=== PATIENT | male | born 1970 | race Caucasian/White ===

== ENCOUNTER → 2018-01-04 07:07 | Outpatient (CLI) | payer OTHER, SELFPAY ==
[2018-01-04 10:37] LABS: AST(SGOT) 31 U/L (15-37); Alanine Aminotransfer ALT/SGPT 36 U/L (16-61); Albumin, Serum 3.6 g/dL (3.2-5.0); Alkaline Phosphatase 49 U/L (45-117); Bilirubin, Direct 0.14 mg/dL (0.00-0.30); Cholesterol 206 mg/dL (200); Globulin 3.9 g/dL (2.2-4.2); High Density Lipoprotein 59 mg/dL; Protein, Total 7.5 g/dL (6.4-8.2); Triglycerides 239 mg/dL; Very Low Density Lipoprotein 48 mg/dL (5-40)
== END ==
PROVIDERS: Family Provider Family Medicine; PCP Family Medicine; Referring Provider Family Medicine; Visit Provider Family Medicine
DX: E78.5 Hyperlipidemia, unspecified (principal)
CPT/HCPCS: 36415; 80061; 80076

== ENCOUNTER → 2018-07-27 16:35 | Outpatient (CLI) | payer OTHER, SELFPAY ==
[2017-02-03 10:11] VITALS: BMI 27.4
[2018-07-27 18:04] LABS: Uric Acid 7.5 mg/dL (3.5-7.2)
== END ==
PROVIDERS: Family Provider Family Medicine; PCP Family Medicine; Visit Provider Family Medicine
DX: M10.9 Gout, unspecified (principal)
CPT/HCPCS: 36415; 84550

== ENCOUNTER → 2018-10-26 07:08 | Outpatient (CLI) | payer OTHER, SELFPAY ==
[2018-10-26 10:02] LABS: Absolute Lymphocyte Count 1.83 X10^3/uL (0.83-4.51); Absolute Neutrophil Count 3.5 X10^3/uL (2.0-7.7); Basophil# 0.03 X10^3/uL; Basophil% 0.5 % (0-1); Eosinophil# 0.11 X10^3/uL; Eosinophils% 1.9 % (0-5); Hematocrit 40.8 % (40-54); Hemoglobin 13.5 g/dL (13.0-16.5); Lymphocyte # 1.83 X10^3/ul (4.0); Lymphocyte % 31.3 % (19-41); Mean Corp Hgb Conc 33.1 g/dL (32-36); Mean Corpuscular Volume 93.8 fL (80-94); Mean Platelet Vol. 9.8 fl (6.2-12.0); Monocyte# 0.39 X10^3/uL; Monocyte% 6.7 % (0-10); NRBC Flagged by Analyzer 0 % (0-5); Neutrophil # 3.46 X10^3/uL (2.7-7.7); Neutrophil % 59.3 % (47-70); Platelet Count 236 K/mm3 (150-450); RBC Distribution Width CV 12.3 % (11.6-14.6); RBC Distribution Width SD 42.6 fl (35.1-43.9); Red Blood Count 4.35 M/mm3 (4.6-6.2); White Blood Count 5.8 K/mm3 (4.4-11.0)
[2018-10-26 10:31] LABS: Anion Gap 7 (5-15); BUN 9 mg/dL (7-18); BUN/Creat Ratio 9.6 RATIO (10-20); Calcium,Total 8.7 mg/dL (8.5-10.1); Chloride 107 mmol/L (98-107); Cholesterol 178 mg/dL (200); Creatinine, Serum 0.94 mg/dL (0.70-1.30); EST Glomerular Filtration Rate 91 mL/min (>60); Est Glom Filt Rate - Afr Amer 110 mL/min (>60); Glucose 80 mg/dL (74-106); High Density Lipoprotein 58 mg/dL; Potassium 4.4 mmol/L (3.5-5.1); Sodium Level 143 mmol/L (136-145); Triglycerides 347 mg/dL; Uric Acid 6.7 mg/dL (3.5-7.2); Very Low Density Lipoprotein 69 mg/dL (5-40)
== END ==
PROVIDERS: Family Provider Family Medicine; PCP Family Medicine; Referring Provider Family Medicine; Visit Provider Family Medicine
DX: E78.5 Hyperlipidemia, unspecified (principal); M10.9 Gout, unspecified; R03.0 Elevated blood-pressure reading, without diagnosis of hypertension
CPT/HCPCS: 36415; 80048; 80061; 84550; 85025

== ENCOUNTER → 2020-01-01 07:02 | Outpatient (CLI) | payer OTHER, SELFPAY ==
[2020-01-01 10:59] LABS: Hemoglobin A1c 5.3 % (3.8-5.6)
[2020-01-01 11:34] LABS: ALB/GLOB Ratio 0.9 RATIO (0.9-2.4); AST(SGOT) 33 U/L (15-37); Alanine Aminotransfer ALT/SGPT 41 U/L (16-61); Albumin, Serum 3.6 g/dL (3.2-5.0); Alkaline Phosphatase 47 U/L (45-117); Anion Gap 10 (5-15); BUN 14 mg/dL (7-18); BUN/Creat Ratio 11.5 RATIO (10-20); Chloride 108 mmol/L (98-107); Cholesterol 191 mg/dL (200); Creatinine, Serum 1.22 mg/dL (0.70-1.30); EST Glomerular Filtration Rate 67 mL/min (>60); Est Glom Filt Rate - Afr Amer 82 mL/min (>60); Globulin 3.9 g/dL (2.2-4.2); Glucose 115 mg/dL (74-106); High Density Lipoprotein 54 mg/dL; Potassium 4.3 mmol/L (3.5-5.1); Protein, Total 7.5 g/dL (6.4-8.2); Sodium Level 140 mmol/L (136-145); Triglycerides 351 mg/dL; Very Low Density Lipoprotein 70 mg/dL (5-40)
== END ==
PROVIDERS: PCP Family Medicine; Referring Provider Family Medicine; Visit Provider Family Medicine
DX: E78.5 Hyperlipidemia, unspecified (principal); R03.0 Elevated blood-pressure reading, without diagnosis of hypertension; E16.2 Hypoglycemia, unspecified
CPT/HCPCS: 36415; 80053; 80061; 83036

== ENCOUNTER → 2020-04-08 08:10 | Outpatient (CLI) | payer OTHER, SELFPAY ==
[2017-02-03 10:11] VITALS: BMI 27.4
--- NOTE | 2020-04-08 08:57 | RAD_ITS ---
STUDY: X-RAY - PARANASAL SINUSES REASON FOR EXAM: Male, 49 years old. Sinus pain TECHNIQUE: 3 view(s) of the paranasal sinuses were obtained. COMPARISON: None. FINDINGS: Normal visualized frontal, maxillary, ethmoidal and sphenoid sinuses. Normal visualized facial bones. The soft tissue structures are unremarkable. RAD/Sinuses min 3 Views IMPRESSION: Normal x-rays of the paranasal sinuses. Electronically Signed: Puneet Davis MD at 10:16 EST , Service support ,
== END ==
PROVIDERS: PCP Family Medicine; Referring Provider Family Medicine; Visit Provider Family Medicine
DX: J34.89 Other specified disorders of nose and nasal sinuses (principal)
CPT/HCPCS: 70220

== ENCOUNTER → 2021-01-08 08:01 | Outpatient (CLI) | payer OTHER, SELFPAY ==
[2021-01-08 10:24] LABS: ALB/GLOB Ratio 0.8 RATIO (0.9-2.4); AST(SGOT) 31 U/L (15-37); Alanine Aminotransfer ALT/SGPT 35 U/L (16-61); Albumin, Serum 3.4 g/dL (3.2-5.0); Alkaline Phosphatase 58 U/L (45-117); Anion Gap 6 (5-15); BUN 9 mg/dL (7-18); BUN/Creat Ratio 8.5 RATIO (10-20); Calcium,Total 8.9 mg/dL (8.5-10.1); Chloride 105 mmol/L (98-107); Cholesterol 207 mg/dL (200); Creatinine, Serum 1.06 mg/dL (0.70-1.30); EST Glomerular Filtration Rate 79 mL/min (>60); Est Glom Filt Rate - Afr Amer 96 mL/min (>60); Globulin 4.2 g/dL (2.2-4.2); Glucose 93 mg/dL (74-106); High Density Lipoprotein 50 mg/dL; Potassium 4.3 mmol/L (3.5-5.1); Protein, Total 7.6 g/dL (6.4-8.2); Sodium Level 138 mmol/L (136-145); Triglycerides 389 mg/dL; Uric Acid 8.2 mg/dL (3.5-7.2); Very Low Density Lipoprotein 78 mg/dL (5-40)
== END ==
PROVIDERS: PCP Family Medicine; Referring Provider Family Medicine; Visit Provider Family Medicine
DX: E78.5 Hyperlipidemia, unspecified (principal); M10.9 Gout, unspecified
CPT/HCPCS: 36415; 80053; 80061; 84550

== ENCOUNTER → 2022-01-19 | Outpatient (CLI) | payer OTHER, SELFPAY ==
[2022-01-19 10:14] LABS: ALB/GLOB Ratio 0.9 RATIO (0.9-2.4); AST(SGOT) 20 U/L (15-37); Alanine Aminotransfer ALT/SGPT 34 U/L (16-61); Albumin, Serum 3.5 g/dL (3.2-5.0); Alkaline Phosphatase 68 U/L (45-117); Anion Gap 7 (5-15); BUN 11 mg/dL (7-18); BUN/Creat Ratio 11.3 RATIO (10-20); Calcium,Total 9.4 mg/dL (8.5-10.1); Chloride 108 mmol/L (98-107); Cholesterol 257 mg/dL (200); Creatinine, Serum 0.97 mg/dL (0.70-1.30); EST Glomerular Filtration Rate 87 mL/min (>60); Est Glom Filt Rate - Afr Amer 105 mL/min (>60); Globulin 4.1 g/dL (2.2-4.2); Glucose 113 mg/dL (74-106); High Density Lipoprotein 53 mg/dL; Potassium 4.4 mmol/L (3.5-5.1); Protein, Total 7.6 g/dL (6.4-8.2); Sodium Level 141 mmol/L (136-145); Triglycerides 177 mg/dL; Uric Acid 6.9 mg/dL (3.5-7.2); Very Low Density Lipoprotein 35 mg/dL (5-40)
[2022-01-19 10:22] LABS: Microalbumin,Random Urine 29.1 mg/L (NO RANGE EST.); Microalbumin:Creatinine Ratio 19.1 mg/g CRE (<30 mg/g CRE)
== END | disposition home or self-care (01) ==
PROVIDERS: PCP Family Medicine; Referring Provider Family Medicine; Visit Provider Family Medicine
DX: E78.5 Hyperlipidemia, unspecified (principal); M10.9 Gout, unspecified; R03.0 Elevated blood-pressure reading, without diagnosis of hypertension
CPT/HCPCS: 36415; 80053; 80061; 82043; 82570; 84550

== ENCOUNTER → 2023-01-01 | Outpatient (CLI) | payer OTHER, SELFPAY ==
[2023-01-01 10:10] LABS: Absolute Lymphocyte Count 1.68 X10^3/uL (0.83-4.51); Absolute Neutrophil Count 4.9 X10^3/uL (2.0-7.7); Basophil# 0.03 X10^3/uL; Basophil% 0.4 % (0-1); Eosinophil# 0.16 X10^3/uL; Eosinophils% 2.2 % (0-5); Hematocrit 43.9 % (40-54); Hemoglobin 14.7 g/dL (13.0-16.5); Lymphocyte # 1.68 X10^3/ul (0.83-4.51); Lymphocyte % 23.2 % (19-41); Mean Corp Hgb Conc 33.5 g/dL (32-36); Mean Corpuscular Hgb 32.1 pg (27.0-32.0); Mean Corpuscular Volume 95.9 fL (80-94); Mean Platelet Vol. 10.1 fl (6.2-12.0); Monocyte# 0.47 X10^3/uL; Monocyte% 6.5 % (0-10); NRBC Flagged by Analyzer 0 % (0-5); Neutrophil # 4.86 X10^3/uL (2.7-7.7); Neutrophil % 67.1 % (47-70); Platelet Count 239 K/mm3 (150-450); RBC Distribution Width CV 12.6 % (11.6-14.6); RBC Distribution Width SD 44.6 fl (35.1-43.9); Red Blood Count 4.58 M/mm3 (4.6-6.2); White Blood Count 7.2 K/mm3 (4.4-11.0)
[2023-01-01 10:42] LABS: ALB/GLOB Ratio 0.9 RATIO (0.9-2.4); AST(SGOT) 51 U/L (15-37); Alanine Aminotransfer ALT/SGPT 57 U/L (16-61); Albumin, Serum 3.5 g/dL (3.2-5.0); Alkaline Phosphatase 53 U/L (45-117); Anion Gap 7 (5-15); BUN 10 mg/dL (7-18); BUN/Creat Ratio 9.8 RATIO (10-20); Calcium,Total 9.1 mg/dL (8.5-10.1); Chloride 107 mmol/L (98-107); Cholesterol 276 mg/dL (200); Creatinine, Serum 1.02 mg/dL (0.70-1.30); EST Glomerular Filtration Rate 82 mL/min (>60); Est Glom Filt Rate - Afr Amer 99 mL/min (>60); Globulin 3.8 g/dL (2.2-4.2); Glucose 108 mg/dL (74-106); High Density Lipoprotein 50 mg/dL; Potassium 4.2 mmol/L (3.5-5.1); Protein, Total 7.3 g/dL (6.4-8.2); Sodium Level 141 mmol/L (136-145); Triglycerides 307 mg/dL; Very Low Density Lipoprotein 61 mg/dL (5-40)
== END | disposition home or self-care (01) ==
LOC: MTLAB 07:03
PROVIDERS: PCP Family Medicine; Referring Provider Family Medicine; Visit Provider Family Medicine
DX: E78.5 Hyperlipidemia, unspecified (principal); R03.0 Elevated blood-pressure reading, without diagnosis of hypertension
CPT/HCPCS: 36415; 80053; 80061; 85025

== ENCOUNTER 2023-07-03 19:10 | Emergency (ER) | payer OTHER, SELFPAY ==
[2023-07-03 19:12] VITALS: BP 145/81; PULSE 84; RESP 16; TEMP 36.3; O2SAT 97; BMI 26.7
--- NOTE | 2023-07-03 19:18 | EKG12_ITS ---
Test Reason : SYNCOPE Blood Pressure : / mmHG Vent. Rate : 075 BPM Atrial Rate : 075 BPM P-R Int : 176 ms QRS Dur : 098 ms QT Int : 390 ms P-R-T Axes : 046 -04 040 degrees QTc Int : 435 ms Normal sinus rhythm Incomplete right bundle branch block Borderline ECG Confirmed by ALIYAH JOYCE, BI ([id number]), assignment editor GLEN BLUNT ([id number]) on 07/05/2023 9:44:11 AM Referred By: Confirmed By:BI LY MD
--- NOTE | 2023-07-03 19:19 | EX.ED.DYSGE1 ---
HPI History of Present Illness Chief Complaint: Syncope [facility] Medical History (Updated 07/03/23 @ 19:26 by Rukhsana Yuen) Gout Hypertension Home Medications aspirin 81 mg tablet,delayed release 81 mg PO DAILY@0800 #30 tabs 02/03/17 [Rx Last Taken Unknown] ezetimibe 10 mg-simvastatin 40 mg tablet 1 tab PO QPM #30 tabs 02/03/17 [Rx Last Taken Unknown] fenofibrate nanocrystallized 48 mg tablet 48 mg PO DAILY@0800 #30 tabs 02/03/17 [Rx Last Taken Unknown] omega-3s 980 mg-dha 253 mg-epa 647 mg-fish oil capsule,delayed release 1 ea PO DAILY ##30 02/03/17 [Rx Last Taken Unknown] Allergy/AdvReac Type Severity Reaction Status Date / Time No Known Allergies Allergy Verified 07/03/23 19:18 Social History (Updated 04/14/20 @ 14:33 by Agueda SILVA, PA) Smoking Status: Former smoker EXAM Physical Exam Const Vital Signs: 07/03/23 19:12 07/03/23 19:26 Temperature 97.4 F L Temperature Source Temporal Pulse Rate 84 Respiratory Rate 16 Respiratory Effort Normal Respiratory Pattern Normal Blood Pressure 145/81 H Blood Pressure Mean 102 Pulse Ox 97 Oxygen Delivery Method Room Air MDM MDM MDM Narrative Medical decision making narrative: I have personally performed a face to face assessment of the patient and have reviewed the NELL Note. I performed a substantive portion of the visit including all aspects of the following. My moura findings include: History is difficult plan inversion mechanism injury to the right ankle. He presents because of persistent pain and increased swelling. He states he is injured that ankle approximate 30 times. He has no known history of fracture. He also had a splinter right ring finger. Apparently was a metal shaving. Uncertain whether he may have gotten all of it out. Was placed on antibiotics and the infection has improved. Exam is the finger does not appear infected. There is no subungual hematoma. Sensation is normal. Full active range of motion. Examination of the right ankle reveals swelling. There is pain to palpation distal posterior 4 cm of the lateral malleolus. There is no pain ovation over the medial malleolus. There is no laxity with drawer testing. DP pulses palpable. There is no pain to palpation of the base of the fifth metatarsal. Medical Decision Making x-ray finger was obtained and there is no evidence of foreign body or soft tissue swelling. 3 views were obtained and admitted dependently interpreted by me at 1936. Three-view x-ray of the ankle and three-view x-ray of the foot was obtained. There is evidence of prior avulsion fracture medial malleolus x 2. There is no acute fracture. There is no widening of the mortise. The tarsal bones, metatarsal bones are normal on the x-ray. Other additions or changes: [None] Radiography Chest X-Ray - ED: Read by ED Physician (Documented under the MDM narrative/attending note) Discharge Plan Triage Chief Complaint: Syncope ED Midlevel Provider: Pepe Mercado ED Provider: Delio Kiran Dx/Rx/DC Orders Prescriptions: No Action fenofibrate nanocrystallized 48 MG tablet 48 mg PO DAILY@0800 Qty: 30 0RF ezetimibe-simvastatin 1 TABLET tablet 1 tab PO QPM Qty: 30 0RF uokaq-2j-avx-epa-fish oil 1 EACH capsule,delayed release(DR/EC) 1 ea PO DAILY Qty: 30 0RF aspirin 81 MG tablet 81 mg PO DAILY@0800 Qty: 30 0RF Primary Care Provider: Lynn Brink Referrals: Lynn Brink, DO [Primary Care Provider] -
[2023-07-03] MEDS: 0.9% Normal Saline (1000mL) 1,000 ML 1000 ML IV (19:28)
--- NOTE | 2023-07-03 19:30 | RAD_ITS ---
EXAM: XR RIGHT FOOT COMPLETE, 3 OR MORE VIEWS CLINICAL INDICATION: pain TECHNIQUE: Frontal, lateral and oblique views of the right foot. COMPARISON: Ankle on the same date. FINDINGS: BONES/JOINTS: Spurring of the medial lateral malleoli. Calcaneal spurs. Minimal dorsal midfoot spurring. No acute fracture. No subluxation. Normal alignment. Preservation of the joint space. No sclerotic or destructive changes observed. SOFT TISSUES: No significant abnormality. No soft tissue swelling or gas. No radiopaque foreign body. RAD/Foot min 3 Views IMPRESSION: Degenerative changes. No discrete evidence of an acute fracture or dislocation. Electronically Signed: Blane Tijerina DO at 19:48 EDT ,
--- NOTE | 2023-07-03 19:30 | RAD_ITS ---
EXAM: XR RIGHT ANKLE COMPLETE, 3 OR MORE VIEWS CLINICAL INDICATION: pain TECHNIQUE: Frontal, lateral and oblique views of the right ankle. COMPARISON: Foot on the same date. FINDINGS: BONES/JOINTS: Minimal spurring of the medial lateral malleoli small well-corticated ossicles at the medial malleolus. Calcaneal spurs. No acute fracture. No subluxation. Normal alignment. Preservation of the joint space. No sclerotic or destructive changes observed. SOFT TISSUES: Soft tissue swelling. No radiopaque foreign body. RAD/Ankle min 3 Views IMPRESSION: Soft tissue swelling. Degenerative changes. No acute osseous abnormalities. Electronically Signed: Blane Tijerina DO at 19:49 EDT ,
--- NOTE | 2023-07-03 19:30 | RAD_ITS ---
EXAM: XR RIGHT FINGERS, 2 OR MORE VIEWS CLINICAL INDICATION: splinter TECHNIQUE: Frontal, lateral and oblique views of the fingers of the right hand. COMPARISON: No relevant prior studies available. FINDINGS: BONES/JOINTS: No significant abnormality. No acute fracture. No subluxation. Normal alignment. Preservation of the joint space. No sclerotic or destructive changes observed. SOFT TISSUES: Soft tissue swelling of the fourth digit. No foreign body is identified. RAD/Finger(s) Min 2 Views IMPRESSION: Soft tissue swelling of the fourth digit. No foreign body is identified. Electronically Signed: Blane Tijerina DO at 19:50 EDT ,
--- NOTE | 2023-07-03 19:38 | EDS_ITS ---
HPI History of Present Illness Chief Complaint: Syncope Narrative Narrative: Patient [facility] Medical History (Updated 07/03/23 @ 19:26 by Rukhsana Yuen) Gout Hypertension Home Medications aspirin 81 mg tablet,delayed release 81 mg PO DAILY@0800 #30 tabs 02/03/17 [Rx Last Taken Unknown] ezetimibe 10 mg-simvastatin 40 mg tablet 1 tab PO QPM #30 tabs 02/03/17 [Rx Last Taken Unknown] fenofibrate nanocrystallized 48 mg tablet 48 mg PO DAILY@0800 #30 tabs 02/03/17 [Rx Last Taken Unknown] omega-3s 980 mg-dha 253 mg-epa 647 mg-fish oil capsule,delayed release 1 ea PO DAILY ##30 02/03/17 [Rx Last Taken Unknown] Allergy/AdvReac Type Severity Reaction Status Date / Time No Known Allergies Allergy Verified 07/03/23 19:18 Social History (Updated 04/14/20 @ 14:33 by Agueda Hutchins PA, PA) Smoking Status: Former smoker EXAM Physical Exam Const Vital Signs: 07/03/23 19:12 07/03/23 19:26 Temperature 97.4 F L Temperature Source Temporal Pulse Rate 84 Respiratory Rate 16 Respiratory Effort Normal Respiratory Pattern Normal Blood Pressure 145/81 H Blood Pressure Mean 102 Pulse Ox 97 Oxygen Delivery Method Room Air Discharge Plan Triage Chief Complaint: Syncope ED Midlevel Provider: Pepe Mercado ED Provider: Delio Kiran Dx/Rx/DC Orders Prescriptions: No Action fenofibrate nanocrystallized 48 MG tablet 48 mg PO DAILY@0800 Qty: 30 0RF ezetimibe-simvastatin 1 TABLET tablet 1 tab PO QPM Qty: 30 0RF rrnlu-6j-osu-epa-fish oil 1 EACH capsule,delayed release(DR/EC) 1 ea PO DAILY Qty: 30 0RF aspirin 81 MG tablet 81 mg PO DAILY@0800 Qty: 30 0RF Primary Care Provider: Lynn Brink Referrals: Lynn Brink, DO [Primary Care Provider] -
--- NOTE | 2023-07-03 19:40 | EDS_ITS ---
HPI <ALAN Hancock - Last Filed: 07/03/23 19:56> History of Present Illness Chief Complaint: Syncope Narrative Narrative: Patient is a 52-year-old male, patient has medical history of hyperlipidemia, patient does drink alcohol daily, he states a lot. Patient states this week, he injured his finger at work, concern for a metal foreign body, he did have some redness and was placed on amoxicillin. This has improved. Patient also states that he rolled his right ankle is having significant pain in the last 2 days. Today he was unable to go to work, and he has been sitting in a chair drinking beer. Today he did not eat or drink anything other than having beer. He states he was getting up to help with dinner when he felt dizzy, went to the bathroom and had a syncopal episode. Per the squad, patient was in a bradycardic rhythm, however he was alert and oriented, vital signs have returned to normal. Patient remembers the event slightly. He denies any chest pain or shortness of breath. Patient does complain of pain to his right ankle. PFSH <ALAN Hancock - Last Filed: 07/03/23 19:56> [facility] Medical History (Updated 07/03/23 @ 19:26 by Rukhsana Yuen) Gout Hypertension Home Medications aspirin 81 mg tablet,delayed release 81 mg PO DAILY@0800 #30 tabs 02/03/17 [Rx Last Taken Unknown] ezetimibe 10 mg-simvastatin 40 mg tablet 1 tab PO QPM #30 tabs 02/03/17 [Rx Last Taken Unknown] fenofibrate nanocrystallized 48 mg tablet 48 mg PO DAILY@0800 #30 tabs 02/03/17 [Rx Last Taken Unknown] omega-3s 980 mg-dha 253 mg-epa 647 mg-fish oil capsule,delayed release 1 ea PO DAILY ##30 02/03/17 [Rx Last Taken Unknown] Allergy/AdvReac Type Severity Reaction Status Date / Time No Known Allergies Allergy Verified 07/03/23 19:18 Social History (Updated 04/14/20 @ 14:33 by Agueda SILVA, PA) Smoking Status: Former smoker ROS <ALAN Hancock - Last Filed: 07/03/23 19:56> ROS ED ROS Narrative Constitutional: Negative for fever, chills, weight loss, weakness Eyes: Negative for vision loss, vision change, double vision ENT: Negative for any sore throat, ear pain, congestion Cardiovascular: Negative for any chest pain, tightness, palpitations Respiratory: Negative for any cough, sputum production, hemoptysis, dyspnea, dyspnea on exertion, orthopnea Gastrointestinal: Negative for any abdominal pain, nausea, vomiting, diarrhea, constipation, blood in stool, blood in vomit : Negative for any urinary frequency, dysuria, retention, blood in urine Muscle skeletal: Negative for any neck pain, back pain. Positive for right ankle pain, right hand pain Neurological: Negative for any headache. Positive for syncope Skin: Negative for any rashes, itching, abrasions, lacerations Psychiatric: Negative for any depression, anxiety, stress, suicidal ideation, homicidal ideation Hematologic: Negative for any excessive bruising, easy bleeding EXAM <ALAN Hancock - Last Filed: 07/03/23 19:56> Physical Exam Narrative Exam Narrative: Vital signs reviewed. Patient alert and orient x 4. Patient is acting appropriate. Patient does state that he has drank a lot of beer today Vital signs are stable. HEET: Head normocephalic atraumatic, TMs clear bilaterally. Posterior pharynx is clear, moist mucous membranes. Nares clear bilaterally. Neck: Supple with no lymphadenopathy or tenderness. No signs of meningismus. Cardiac: Regular rate and rhythm no murmurs gallops or rubs, equal peripheral pulses bilaterally. Respiratory: Lungs clear to auscultation bilaterally. No chest tenderness. Abdomen: Soft, nontender, nondistended. No abdominal bruit or pulsatile masses. No hepatosplenomegaly Extremities: Patient's right ankle, right foot does show some ecchymosis, edema. Pain is mostly on the medial malleolus.. Active full range of motion of all extremities. Patient's right hand was unremarkable. No evidence of swelling or foreign body. Neuro: Cranial nerves II through XII intact, no focal neurological deficits. Skin: Clean dry and intact with no rash, purpura, petechiae, vesicles or pustules. Backs/flank: No CVA tenderness, no midline spinal tenderness, no deformity. Psych: Normal mood and affect. No SI, HI or acute psychosis. Const Vital Signs: 07/03/23 19:12 07/03/23 19:26 Temperature 97.4 F L Temperature Source Temporal Pulse Rate 84 Respiratory Rate 16 Respiratory Effort Normal Respiratory Pattern Normal Blood Pressure 145/81 H Blood Pressure Mean 102 Pulse Ox 97 Oxygen Delivery Method Room Air Positive well nourished and well developed General Appearance ED: well developed <Dr. Delio Kiran MD - Last Filed: 07/03/23 19:56> Physical Exam Const Vital Signs: 07/03/23 19:12 07/03/23 19:26 Temperature 97.4 F L Temperature Source Temporal Pulse Rate 84 Respiratory Rate 16 Respiratory Effort Normal Respiratory Pattern Normal Blood Pressure 145/81 H Blood Pressure Mean 102 Pulse Ox 97 Oxygen Delivery Method Room Air MDM <ALAN Hancock - Last Filed: 07/03/23 19:56> MDM Lab Data Labs: Laboratory Results - last 24 hr 07/03/23 19:25 Ethyl Alcohol 141.0 Radiography Diagnostic Testing: Clinical Impression(s) from Imaging Studies Ankle X-Ray 07/03/23 19:30 IMPRESSION: Soft tissue swelling. Degenerative changes. No acute osseous abnormalities. Electronically Signed: Blane Tijerina DO at 19:49 EDT , Finger X-Ray 07/03/23 19:30 IMPRESSION: Soft tissue swelling of the fourth digit. No foreign body is identified. Electronically Signed: Blane Tijerina DO at 19:50 EDT , Foot X-Ray 07/03/23 19:30 IMPRESSION: Degenerative changes. No discrete evidence of an acute fracture or dislocation. Electronically Signed: Blane Tijerina DO at 19:48 EDT , EKG EKG shows a normal sinus rhythm: Attestation: I personally reviewed and interpreted this EKG as follows: Comments: Normal sinus rhythm, rate of 75 bpm, PA 176 ms, QRS duration 98 ms, no acute ST elevation, no acute infarct noted. Treatment and Re-Evaluation :: Differential diagnosis includes however is not limited to: Syncopal episode, arrhythmia, ACS, [place], alcohol intoxication, ankle sprain, first ankle fracture, foreign body right hand. Patient appears to be in no obvious respiratory distress vital signs are stable. Patient presents to the emergency department after a syncopal episode, patient has also have right ankle pain from a previous injury as well as concern for foreign bodies right hand. Patient received an x-ray of the ankle foot as well as the right hand. Patient EKG was unremarkable. Patient received IV fluids, as well as basic laboratory values. Patient will be reevaluated. X-rays interpreted by ER physician of the right ankle, right foot were negative, soft tissue swelling, degenerative changes. X-ray of the right finger was ne gative for any osseous abnormality, foreign body. <Dr. Delio Kiran MD - Last Filed: 07/03/23 19:56> [facility] MDM Narrative Medical decision making narrative: I have personally performed a face to face assessment of the patient and have reviewed the NELL Note. I performed a substantive portion of the visit including all aspects of the following. My moura findings include: History is remarkable for of infected right finger. Concern for possible retained foreign body. Also injury to ankle yesterday. Had increased swelling and increased pain with weightbearing. He has injured that ankle 30 times per patient. He has never had a fracture to his knowledge. He admits to drinking because of increased pain. He had a plantar inversion mechanism injury. He denies paresthesia, anesthesia or motor weakness of the right lower extremity. Exam is remarkable for swelling of the ankle with pain palpation over the posterior distal 3 to 4 cm of the lateral malleolus. There is no pain ovation over the medial malleolus. There is no laxity with drawer testing. There is no pain the patient's base of the fifth metatarsal. DP pulses palpable. Since patient had a syncopal episode EKG was obtained. Based on description this is a vasovagal event. Medical Decision Making EKG with a sinus rhythm with an incomplete right bundle branch block otherwise normal. Three-view x-ray of the finger reveals no soft tissue swelling or foreign body per my independent read. This was performed at 1936. 3 views of the ankle and foot were also obtained independent reviewed interpreted by me at 1936 as negative for acute process. There are 2 small what appears to be old patella fracture of the medial malleolus. Patient was discharged home with appropriate home-going structures Other additions or changes: [None] Lab Data Labs: Laboratory Results - last 24 hr 07/03/23 19:25 Ethyl Alcohol 141.0 Radiography Diagnostic Testing: Clinical Impression(s) from Imaging Studies Ankle X-Ray 07/03/23 19:30 IMPRESSION: Soft tissue swelling. Degenerative changes. No acute osseous abnormalities. Electronically Signed: Blane GatesCon Tijerina DO at 19:49 EDT , Finger X-Ray 07/03/23 19:30 IMPRESSION: Soft tissue swelling of the fourth digit. No foreign body is identified. Electronically Signed: Blane GatesCon Tijerina DO at 19:50 EDT , Foot X-Ray 07/03/23 19:30 IMPRESSION: Degenerative changes. No discrete evidence of an acute fracture or dislocation. Electronically Signed: Blane GatesCon Tijerina DO at 19:48 EDT , Discharge Plan Triage Chief Complaint: Syncope ED Midlevel Provider: Pepe Mercdao ED Provider: Delio Kiran Dx/Rx/DC Orders Prescriptions: No Action fenofibrate nanocrystallized 48 MG tablet 48 mg PO DAILY@0800 Qty: 30 0RF ezetimibe-simvastatin 1 TABLET tablet 1 tab PO QPM Qty: 30 0RF gfjcz-8x-jss-epa-fish oil 1 EACH capsule,delayed release(DR/EC) 1 ea PO DAILY Qty: 30 0RF aspirin 81 MG tablet 81 mg PO DAILY@0800 Qty: 30 0RF Primary Care Provider: Cyril Morrissey Referrals: Lynn Brnik DO [Med Staff - Instructional Materials Director] -
[2023-07-03 19:55] LABS: Absolute Lymphocyte Count 1.44 X10^3/uL (0.83-4.51); Absolute Neutrophil Count 6.4 X10^3/uL (2.0-7.7); Basophil# 0.01 X10^3/uL; Basophil% 0.1 % (0-1); Eosinophil# 0.12 X10^3/uL; Eosinophils% 1.4 % (0-5); Hematocrit 38.8 % (40-54); Hemoglobin 13.3 g/dL (13.0-16.5); Lymphocyte # 1.44 X10^3/ul (0.83-4.51); Lymphocyte % 16.8 % (19-41); Mean Corp Hgb Conc 34.3 g/dL (32-36); Mean Corpuscular Hgb 32.5 pg (27.0-32.0); Mean Corpuscular Volume 94.9 fL (80-94); Mean Platelet Vol. 9.5 fl (6.2-12.0); Monocyte# 0.59 X10^3/uL; Monocyte% 6.9 % (0-10); NRBC Flagged by Analyzer 0 % (0-5); Neutrophil # 6.39 X10^3/uL (2.7-7.7); Neutrophil % 74.3 % (47-70); Platelet Count 193 K/mm3 (150-450); RBC Distribution Width CV 12.6 % (11.6-14.6); RBC Distribution Width SD 43.5 fl (35.1-43.9); Red Blood Count 4.09 M/mm3 (4.6-6.2); White Blood Count 8.6 K/mm3 (4.4-11.0)
[2023-07-03 20:01] VITALS: BP 142/86; PULSE 73; RESP 18; TEMP 36.6; O2SAT 99
[2023-07-03 20:10] LABS: AST(SGOT) 27 U/L (15-37); Alanine Aminotransfer ALT/SGPT 44 U/L (16-61); Albumin, Serum 2.9 g/dL (3.2-5.0); Alkaline Phosphatase 44 U/L (45-117); Anion Gap 7 (5-15); BUN 9 mg/dL (7-18); BUN/Creat Ratio 8.7 RATIO (10-20); Bilirubin, Direct 0.14 mg/dL (0.00-0.30); Chloride 107 mmol/L (98-107); Creatinine, Serum 1.04 mg/dL (0.70-1.30); EST Glomerular Filtration Rate 80 mL/min (>60); Est Glom Filt Rate - Afr Amer 97 mL/min (>60); Estimated Creatinine Clearance 94.97 ml/min; Globulin 3.6 g/dL (2.2-4.2); Glucose 126 mg/dL (74-106); Lipase 27 U/L (13-75); Potassium 3.9 mmol/L (3.5-5.1); Protein, Total 6.5 g/dL (6.4-8.2); Sodium Level 139 mmol/L (136-145)
== END 2023-07-03 20:08 | disposition home or self-care (01) ==
PROVIDERS: Nurse Practitioner; Emergency Provider Emergency Medicine; PCP Family Medicine; Visit Provider Emergency Medicine
DX: R55 Syncope and collapse (principal); F10.90 Alcohol use, unspecified, uncomplicated; Y90.6 Blood alcohol level of 120-199 mg/100 ml; M25.571 Pain in right ankle and joints of right foot; I10 Essential (primary) hypertension; E78.5 Hyperlipidemia, unspecified; M10.9 Gout, unspecified; Z79.82 Long term (current) use of aspirin; Z79.899 Other long term (current) drug therapy; Z87.891 Personal history of nicotine dependence
CPT/HCPCS: 73140; 73610; 73630; 80048; 80076; 80320; 83690; 85025; 93005; 96360; 99285; G0480

== ENCOUNTER → 2024-01-11 | Outpatient (CLI) | payer OTHER, SELFPAY ==
[2024-01-11 10:24] LABS: Absolute Lymphocyte Count 1.91 X10^3/uL (0.83-4.51); Absolute Neutrophil Count 4.5 X10^3/uL (2.0-7.7); Basophil# 0.04 X10^3/uL; Basophil% 0.6 % (0-1); Eosinophil# 0.13 X10^3/uL; Eosinophils% 1.8 % (0-5); Hematocrit 42.9 % (40-54); Hemoglobin 14.6 g/dL (13.0-16.5); Lymphocyte # 1.91 X10^3/ul (0.83-4.51); Lymphocyte % 26.8 % (19-41); Mean Corpuscular Hgb 32.3 pg (27.0-32.0); Mean Corpuscular Volume 94.9 fL (80-94); Mean Platelet Vol. 10.1 fl (6.2-12.0); NRBC Flagged by Analyzer 0 % (0-5); Neutrophil # 4.51 X10^3/uL (2.7-7.7); Neutrophil % 63.2 % (47-70); Platelet Count 232 K/mm3 (150-450); RBC Distribution Width CV 12.5 % (11.6-14.6); RBC Distribution Width SD 43.6 fl (35.1-43.9); Red Blood Count 4.52 M/mm3 (4.6-6.2); White Blood Count 7.1 K/mm3 (4.4-11.0)
[2024-01-11 10:47] LABS: Anion Gap 7 (5-15); BUN 11 mg/dL (7-18); BUN/Creat Ratio 10.5 RATIO (10-20); Calcium,Total 8.9 mg/dL (8.5-10.1); Chloride 105 mmol/L (98-107); Cholesterol 301 mg/dL (200); Creatinine, Serum 1.05 mg/dL (0.70-1.30); EST Glomerular Filtration Rate 79 mL/min (>60); Est Glom Filt Rate - Afr Amer 95 mL/min (>60); Glucose 111 mg/dL (74-106); High Density Lipoprotein 49 mg/dL; Potassium 3.9 mmol/L (3.5-5.1); Sodium Level 136 mmol/L (136-145); Triglycerides 550 mg/dL
[2024-01-11 11:16] LABS: Hemoglobin A1c 5.2 % (3.8-5.6)
== END | disposition home or self-care (01) ==
LOC: MTLAB 07:04
PROVIDERS: PCP Family Medicine; Referring Provider Family Medicine; Visit Provider Family Medicine
DX: Z13.1 Encounter for screening for diabetes mellitus (principal); R04.0 Epistaxis; E78.5 Hyperlipidemia, unspecified
CPT/HCPCS: 36415; 80048; 80061; 83036; 85025

== ENCOUNTER → 2025-01-02 | Outpatient (CLI) | payer OTHER, SELFPAY ==
[2025-01-02 09:51] LABS: Hematocrit 45.5 % (40-54); Hemoglobin 15.5 g/dL (13.0-16.5); Immature Granulocytes Count 0.030 X10^3/uL (0.0-0.0); Mean Corp Hgb Conc 34.1 g/dL (32-36); Mean Corpuscular Volume 95.6 fL (80-94); Mean Platelet Vol. 9.4 fl (6.2-12.0); NRBC Flagged by Analyzer 0 % (0-5); Platelet Count 222 K/mm3 (150-450); RBC Distribution Width CV 12.2 % (11.6-14.6); RBC Distribution Width SD 42.9 fl (35.1-43.9); Red Blood Count 4.76 M/mm3 (4.6-6.2); White Blood Count 6.3 K/mm3 (4.4-11.0)
[2025-01-02 10:27] LABS: AST(SGOT) 44 U/L (<=37); Alanine Aminotransfer ALT/SGPT 74 U/L (<=46); Albumin, Serum 4.1 g/dL (3.5-5.0); Alkaline Phosphatase 52 U/L (40-129); Anion Gap 11 (5-15); BUN 9 mg/dL (4-19); BUN/Creat Ratio 8.4 RATIO (10-20); Calcium,Total 9.6 mg/dL (7.6-11.0); Carbon Dioxide 26.6 mmol/L (21.0-32.0); Chloride 100 mmol/L (98-108); Cholesterol 270 mg/dL (<=200); Globulin 3.3 g/dL (2.2-4.2); Glucose 109 mg/dL (70-99); Low Density Lipoprotein Calc. 168 mg/dL; PSA,Total - Annual Screen 0.79 ng/mL (0.02-4.00); Potassium 4.7 mmol/L (3.3-5.1); Triglycerides 293 mg/dL; Very Low Density Lipoprotein 59 mg/dL (5-40); cholesterol:hdl ratio screen 5.79
== END | disposition home or self-care (01) ==
LOC: MTLAB 07:11
PROVIDERS: PCP Family Medicine; Referring Provider Family Medicine; Visit Provider Family Medicine
DX: Z12.5 Encounter for screening for malignant neoplasm of prostate (principal); E78.5 Hyperlipidemia, unspecified; I10 Essential (primary) hypertension
CPT/HCPCS: 36415; 80053; 80061; 84153; 85025; G0103